=== PATIENT | male | born 1990 | race African-American/Black ===

== ENCOUNTER 2020-04-19 21:37 | Emergency (ER) | payer OTHER ==
[~2020-04-19] VITALS: Ht 167.6 cm; Wt 113.4 kg
[~2020-04-19 21:37] MED LIST: ALLERCLEAR10 MG PO; INVEGA SUS156 MG/1 M IM; OXCARBAZEPINE600 MG PO; REMERON 30 MG T30 M1 PO; SEIZURE MED; TOPAMAX 100 MG100 MG PO; ZONEGRAN100 MG PO
[2020-04-19 22:29] LABS: AMP/METHAMP Negative (Negative); BARBITURATES Negative (Negative); BENZODIAZEPINES POSITIVE (Negative); COCAINE Negative (Negative); METHADONE Negative (Negative); OPIATES Negative (Negative); PCP Negative (Negative)
[2020-04-19 22:41] LABS: ABSOLUTE NEUTROPHILS 3.6 thou/uL (1.4-8.2); BASOPHILS 0.4 % (0.0-2.0); EOSINOPHILS 2.8 % (0.0-3.0); HEMATOCRIT 41.1 % (42.0-52.0); LYMPHOCYTES 39.1 % (24.0-44.0); MCH 30.2 pg (26.0-34.0); MONOCYTES 8.1 % (1.0-8.0); PLATELET COUNT 168 thou/uL (150-400); POLYS 49.6 % (36.0-66.0); RBC 4.62 mil/uL (4.50-6.00); WBC 7.3 thou/uL (4.0-11.0)
[2020-04-19 22:49] LABS: ANION GAP 12 mmol/L (7-16); BUN 8 mg/dL (7-18); CALCIUM 9.1 mg/dL (8.5-10.1); CHLORIDE 102 mmol/L (98-107); CO2 21 mmol/L (21-32); CREATININE 0.8 mg/dL (0.7-1.3); GLUCOSE 122 mg/dL (74-106); POTASSIUM 3.8 mmol/L (3.5-5.1); SODIUM 135 mmol/L (136-145)
[2020-04-19 22:53] LABS: SALICYLATE < 2.8 mg/dL (2.8-20.0)
--- NOTE | 2020-04-20 09:05 | EKG ---
[facility] [address] [place] [address] ELECTROCARDIOGRAM REPORT Name: ROSEJULIA Room #: REG [facility]#: [id number] Admission: 04/19/20 Attend Phys: Discharge: Date of : [birth year] Report #: [id number] THIS REPORT FOR: cc: JOHNNA - No family physician/PCP JOHNNA - No family physician/PCP Arsh Blake MD [facility] THIS REPORT FOR: //name// [facility] ED Test Date: 2020-04-19 Test Time: 22:37:29 Pat Name: JULIA ROSE Department: Room: Gender: Reconsignment Clerk: Lyly : 1990 Requested By: Shelby Maguire Order Number: [id number] MD: Arsh Blake Measurements Intervals [place] Rate: 97 P: 55 MS: 171 QRS: 80 QRSD: 100 T: 20 QT: 366 QTc: 465 Interpretive Statements Sinus rhythm Normal tracing Compared to ECG 03/15/2014 18:11:14 No significant changes Electronically Signed On 04-20-2020 9:04:34 CDT by Arsh Blake [email or web address] <ELECTRONICALLY SIGNED> By: Arsh Blake MD, FACC 04/20/20903 36 36 Arhs Blake MD, [facility] /EPI
[2020-04-21 19:56] VITALS: BP 131/77
== END 2020-04-21 19:57 | disposition short-term general hospital (02) ==
LOC: ER 21:37
PROVIDERS: Student in an Organized Health Care Education/Training Program
DX: T54.1X2A Toxic effect of other corrosive organic compounds, intentional self-harm, initial encounter (principal); F32.9 Major depressive disorder, single episode, unspecified; R06.02 Shortness of breath; R07.9 Chest pain, unspecified; Z20.828 Contact with and (suspected) exposure to other viral communicable diseases; R45.851 Suicidal ideations; G40.909 Epilepsy, unspecified, not intractable, without status epilepticus; F17.210 Nicotine dependence, cigarettes, uncomplicated; Z79.899 Other long term (current) drug therapy; Y92.128 Other place in nursing home as the place of occurrence of the external cause

== ENCOUNTER 2021-01-29 13:18 | Emergency (ER) | payer OTHER ==
[~2021-01-29] VITALS: Ht 177.8 cm; Wt 106.6 kg
[2021-01-29 13:35] LABS: URINE BILIRUBIN NEGATIVE (Negative); URINE BLOOD NEGATIVE (Negative); URINE CLARITY CLEAR; URINE COLOR YELLOW; URINE GLUCOSE-RANDOM* NEGATIVE (Negative); URINE KETONES NEGATIVE (Negative); URINE LEUKOCYTES-REFLEX NEGATIVE (Negative); URINE NITRITE-REFLEX NEGATIVE (Negative); URINE PROTEIN (DIPSTICK) NEGATIVE (Negative); URINE UROBILINOGEN 0.2 E.U./dl (0.2-1.0)
[2021-01-29 13:43] LABS: AMP/METHAMP Negative (Negative); BARBITURATES Negative (Negative); BENZODIAZEPINES Negative (Negative); COCAINE Negative (Negative); METHADONE Negative (Negative); OPIATES Negative (Negative); PCP Negative (Negative)
[2021-01-29 14:18] LABS: HEMATOCRIT 44.3 % (42.0-52.0); HEMOGLOBIN 14.7 gm/dL (14.0-18.0); MCH 29.8 pg (26.0-34.0); MCHC 33.1 g/dL (28.0-37.0); RBC 4.92 mil/uL (4.50-6.00); RDW 13.9 % (10.5-14.5); WBC 7.4 thou/uL (4.0-11.0)
[2021-01-29 14:37] LABS: ANION GAP 12 mmol/L (7-16); BUN 8 mg/dL (7-18); CALCIUM 8.9 mg/dL (8.5-10.1); CHLORIDE 105 mmol/L (98-107); CO2 24 mmol/L (21-32); CREATININE 0.9 mg/dL (0.7-1.3); GLUCOSE 80 mg/dL (74-106); POTASSIUM 3.9 mmol/L (3.5-5.1); SODIUM 141 mmol/L (136-145)
[2021-01-29 14:44] LABS: ALBUMIN 3.8 g/dL (3.4-5.0); SGOT 16 U/L (15-37); SGPT 28 U/L (30-65); TOTAL BILIRUBIN 0.2 mg/dL (0.2-1.0); TOTAL PROTEIN 8.7 g/dL (6.4-8.2)
[2021-01-29 14:54] LABS: SALICYLATE < 2.8 mg/dL (2.8-20.0)
[2021-01-29 18:03] VITALS: BP 134/74
== END 2021-01-29 18:27 | disposition home or self-care (01) ==
LOC: ER 13:18
PROVIDERS: Nurse Practitioner Family
DX: F91.1 Conduct disorder, childhood-onset type (principal); F17.210 Nicotine dependence, cigarettes, uncomplicated; Z79.899 Other long term (current) drug therapy

== ENCOUNTER 2021-01-29 19:01 | Emergency (ER) | payer OTHER ==
[~2021-01-29] VITALS: Ht 162.6 cm; Wt 81.7 kg
[2021-01-29 19:15] VITALS: BP 143/93
== END 2021-01-29 19:17 ==
LOC: ER 19:01
DX: Z76.5 Malingerer [conscious simulation] (principal); F17.210 Nicotine dependence, cigarettes, uncomplicated; Z79.899 Other long term (current) drug therapy

== ENCOUNTER 2021-03-18 21:22 | Emergency (ER) | payer OTHER ==
[~2021-03-18] VITALS: Ht 167.6 cm; Wt 90.7 kg
[2021-03-18 21:36] LABS: URINE BILIRUBIN NEGATIVE (Negative); URINE BLOOD NEGATIVE (Negative); URINE CLARITY CLEAR; URINE COLOR YELLOW; URINE GLUCOSE-RANDOM* NEGATIVE (Negative); URINE KETONES NEGATIVE (Negative); URINE LEUKOCYTES-REFLEX NEGATIVE (Negative); URINE NITRITE-REFLEX NEGATIVE (Negative); URINE PROTEIN (DIPSTICK) NEGATIVE (Negative); URINE SPECIFIC GRAVITY 1.015 (1.005-1.035); URINE UROBILINOGEN 0.2 E.U./dl (0.2-1.0)
[2021-03-18 21:49] LABS: ABSOLUTE NEUTROPHILS 3.7 thou/uL (1.4-8.2); BASOPHILS 0.3 % (0.0-2.0); EOSINOPHILS 3.7 % (0.0-3.0); HEMOGLOBIN 14.3 gm/dL (14.0-18.0); LYMPHOCYTES 35.9 % (24.0-44.0); MCH 30.2 pg (26.0-34.0); MCV 88.9 fL (80.0-100.0); MONOCYTES 6.1 % (1.0-8.0); PLATELET COUNT 263 thou/uL (150-400); RBC 4.73 mil/uL (4.50-6.00); RDW 13.9 % (10.5-14.5); WBC 6.8 thou/uL (4.0-11.0)
[2021-03-18 21:58] LABS: ANION GAP 13 mmol/L (7-16); BUN 7 mg/dL (7-18); CALCIUM 8.9 mg/dL (8.5-10.1); CHLORIDE 106 mmol/L (98-107); CO2 22 mmol/L (21-32); CREATININE 0.9 mg/dL (0.7-1.3); GLUCOSE 131 mg/dL (74-106); POTASSIUM 3.2 mmol/L (3.5-5.1); SODIUM 141 mmol/L (136-145)
[2021-03-18 22:07] LABS: ALBUMIN 3.9 g/dL (3.4-5.0); SALICYLATE < 2.8 mg/dL (2.8-20.0); SGOT 11 U/L (15-37); SGPT 28 U/L (16-63); TOTAL BILIRUBIN 0.2 mg/dL (0.2-1.0); TOTAL PROTEIN 8.4 g/dL (6.4-8.2)
[2021-03-18 22:11] LABS: AMP/METHAMP Negative (Negative); BARBITURATES Negative (Negative); BENZODIAZEPINES Negative (Negative); COCAINE Negative (Negative); METHADONE Negative (Negative); OPIATES Negative (Negative); PCP Negative (Negative)
[2021-03-19 01:16] VITALS: BP 93/52
--- NOTE | 2021-03-19 12:08 | EKG ---
[address] [place] [address] ELECTROCARDIOGRAM REPORT Name: JULIA ROSE Room #: [facility]#: [id number] Admission: 03/18/21 Attend Phys: Discharge: 03/19/21 Date of : [birth year] Report #: [id number] [facility] ED Test Date: 2021-03-18 Test Time: 22:06:04 Pat Name: JULIA ROSE Department: Room: Gender: Produce Specialist: : 1990 Requested By: Alfa Flannery Order Number: [id number] MD: Earnest Zelaya Measurements Intervals [place] Rate: 78 P: 54 MS: 193 QRS: 59 QRSD: 94 T: 31 QT: 385 QTc: 439 Interpretive Statements Sinus rhythm Consider left atrial enlargement ST elev, probable normal early repol pattern Compared to ECG 04/19/2020 22:37:29 ST (T wave) deviation now present Electronically Signed On 03-19-2021 12:08:43 CDT by Earnest Zelaya [email or web address] <ELECTRONICALLY SIGNED> By: Earnest Zelaya MD 03/19/21 1208 05 05 Earnest Zelaya MD /BARRETT
== END 2021-03-19 01:16 | disposition home or self-care (01) ==
LOC: ER 21:22
PROVIDERS: Emergency Medicine
DX: F31.9 Bipolar disorder, unspecified (principal); Z20.822 Contact with and (suspected) exposure to COVID-19; R05 Cough; F20.9 Schizophrenia, unspecified; F41.9 Anxiety disorder, unspecified; F17.210 Nicotine dependence, cigarettes, uncomplicated; Z79.899 Other long term (current) drug therapy

== ENCOUNTER 2021-05-02 21:14 | Emergency (ER) | payer OTHER ==
[~2021-05-02] VITALS: Ht 175.3 cm; Wt 127.1 kg
--- NOTE | ~2021-05-02 | EMS ---
[facility] [address] [place] [address] EMS Patient Care Report Name: JULIA ROSE Room #: LILLIAN Farooq#: [id number] Admission: 05/02/21 Attend Phys: Discharge: Date of : [birth year] Report #: [id number] THIS REPORT FOR: //name// Report Transmitted: 05/02/2021 21:01 EMS Care Summary [place], [place]/[facility] Incident [id number] @ 05/02/2021 20:25 [address] [place] [address] Patient JULIA ROSE Male, 30 Years 1990 Patient Address [address] [place] [address] Patient History Seizures,Paranoid Schizophrenia, Patient Allergies No known allergies, Patient Medications Topiramate, Ibuprofen, Zonisamide, Diazepam, Paliperidone, Loratadine, Chief Complaint SI Disposition Transported No Lights/[place] Dispatch Reason Psychiatric Problem/Abnormal Behavior/Suicide Attempt Transported To [facility] Narrative pt got upset at his jail and threatened suicide. staff states he does this on almost a weekly basis. pt found ambulatory in front yard, a&o, cooperative. 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 pt talkative thru out transport. no incidents [facility] [address] [place] [address] EMS Patient Care Report Name: JULIA ROSE Room #: REG Bind[facility].#: [id number] Admission: 05/02/21 Attend Phys: Discharge: Date of : [birth year] Report #: [id number] Initial Vitals @20:58P: 86,R: 18,BP: 138/83,Pain: 0/10,GCS: 15,SpO2: 95,Revised Trauma: 12, Assessments @20:54MENTAL:Other,Person Oriented,Event Oriented,Place Oriented,Time Oriented,SKIN:No Abnormalities,HEENT:Head/Face: No Abnormalities,LUNG SOUNDS:ABDOMEN:PELVIS//GI:EXTREMITIES:PULSE:NEURO:No Abnormalities, Impression Behavioral/psychiatric episode Procedures @20:54ALS AssessmentResponse: Unchanged Timeline 20:23,Call Received 20:23,Dispatch Notified 20:25,Dispatched 20:25,En Route 20:53,On Scene 20:54,At Patient 20:54,ALS Assessment,Response: Unchanged 20:58,BP: 138/83 M,PULSE: 86,RR: 18 R,SPO2: 95 Ox,ETCO2: ,BG: ,PAIN: 0,GCS: 15, 20:59,Depart Scene 21:12,At Destination 21:24,Call Closed Disclaimer v1.1 Copyright 2020 [employer] This EMS Care Summary contains data elements from the applicable legal record (which may be displayed differently). It is designed to provide pertinent information for the following purposes: continuity of care, clinical quality, and state data reporting. The complete legal record is available to ED staff and administrators of the receiving hospital in [facility]'s Patient Tracker. All data is provided "as is."
[2021-05-02 22:25] LABS: ABSOLUTE NEUTROPHILS 3.4 thou/uL (1.4-8.2); BASOPHILS 0.3 % (0.0-2.0); EOSINOPHILS 2.1 % (0.0-3.0); HEMATOCRIT 42.3 % (42.0-52.0); HEMOGLOBIN 14.1 gm/dL (14.0-18.0); LYMPHOCYTES 39.6 % (24.0-44.0); MCH 29.7 pg (26.0-34.0); MCHC 33.3 g/dL (28.0-37.0); MCV 89.4 fL (80.0-100.0); MONOCYTES 9.4 % (1.0-8.0); PLATELET COUNT 282 thou/uL (150-400); POLYS 48.6 % (36.0-66.0); RBC 4.74 mil/uL (4.50-6.00); RDW 13.5 % (10.5-14.5); WBC 6.9 thou/uL (4.0-11.0)
[2021-05-02 22:51] LABS: URINE BILIRUBIN NEGATIVE (Negative); URINE BLOOD NEGATIVE (Negative); URINE CLARITY CLEAR; URINE COLOR YELLOW; URINE GLUCOSE-RANDOM* NEGATIVE (Negative); URINE KETONES NEGATIVE (Negative); URINE LEUKOCYTES-REFLEX TRACE (Negative); URINE NITRITE-REFLEX NEGATIVE (Negative); URINE PROTEIN (DIPSTICK) NEGATIVE (Negative); URINE UROBILINOGEN 0.2 E.U./dl (0.2-1.0)
[2021-05-02 23:01] LABS: AMP/METHAMP Negative (Negative); BARBITURATES Negative (Negative); BENZODIAZEPINES Negative (Negative); COCAINE Negative (Negative); METHADONE Negative (Negative); OPIATES Negative (Negative); PCP Negative (Negative)
[2021-05-02 23:06] LABS: ALBUMIN 3.7 g/dL (3.4-5.0); ANION GAP 10 mmol/L (7-16); BUN 8 mg/dL (7-18); CALCIUM 8.6 mg/dL (8.5-10.1); CHLORIDE 105 mmol/L (98-107); CO2 24 mmol/L (21-32); CREATININE 0.8 mg/dL (0.7-1.3); GLUCOSE 103 mg/dL (74-106); POTASSIUM 3.4 mmol/L (3.5-5.1); SALICYLATE < 2.8 mg/dL (2.8-20.0); SGOT 21 U/L (15-37); SGPT 41 U/L (16-63); SODIUM 139 mmol/L (136-145); TOTAL BILIRUBIN 0.2 mg/dL (0.2-1.0)
[2021-05-03 02:00] VITALS: BP 138/98
--- NOTE | 2021-05-03 07:12 | EKG ---
[address] [address] [facility] [place] [address] ELECTROCARDIOGRAM REPORT Name: JULIA ROSE Room #: [facility] [place]Melissa#: [id number] Admission: 05/02/21 Attend Phys: Discharge: 05/03/21 Date of : [birth year] Report #: [id number] [facility] ED Test Date: 2021-05-02 Test Time: 21:36:01 Pat Name: JULIA ROSE Department: Room: Gender: Component Inspector: : 1990 Requested By: Alfa Flannery Order Number: [id number] MD: Lex Chaudhary Measurements Intervals [place] Rate: 76 P: 61 [place]: 179 QRS: 68 QRSD: 95 T: 24 QT: 380 QTc: 428 Interpretive Statements Sinus rhythm Compared to ECG 03/18/2021 22:06:04 ST (T wave) deviation no longer present Electronically Signed On 05-03-2021 7:12:04 CDT by Lex Chaudhary [email or web address] <ELECTRONICALLY SIGNED> By: Lex Chaudhary MD, [facility] 05/03/21711 2136 2136 Lex Chaudhary MD, FACC /EPI
== END 2021-05-03 02:09 | disposition home or self-care (01) ==
LOC: ER 21:14
PROVIDERS: Emergency Medicine
DX: R44.0 Auditory hallucinations (principal); F17.210 Nicotine dependence, cigarettes, uncomplicated; Z79.899 Other long term (current) drug therapy; Z79.1 Long term (current) use of non-steroidal anti-inflammatories (NSAID); Z79.01 Long term (current) use of anticoagulants; Z20.822 Contact with and (suspected) exposure to COVID-19